=== PATIENT | male | born 1940 | race Caucasian/White ===

== ENCOUNTER 2017-05-23 09:23 | Emergency (ER) | payer MEDICARE, OTHER ==
[~2017-05-23] VITALS: Ht 182.9 cm; Wt 75.0 kg
[2017-05-23] MEDS ORDERED: CLOPIDOGREL75 MG PO (09:34)
[2017-05-23] MEDS ORDERED: LEXAPRO10 MG PO (09:34)
[2017-05-23] MEDS ORDERED: MELOXICAM7.5 MG PO (09:35)
[2017-05-23] MEDS ORDERED: RANITIDINE150 M1 PO (09:35)
[2017-05-23] MEDS ORDERED: FLEXERIL PO (14:44)
[2017-05-23] MEDS ORDERED: LORTAB 1010 MG PO (14:44)
[2017-05-23 14:50] VITALS: BP 130/80
== END 2017-05-23 14:50 | disposition home or self-care (01) ==
LOC: ED 09:23
DX: S39.012A Strain of muscle, fascia and tendon of lower back, initial encounter (principal); M47.817 Spondylosis without myelopathy or radiculopathy, lumbosacral region; M48.56XA Collapsed vertebra, not elsewhere classified, lumbar region, initial encounter for fracture

== ENCOUNTER 2021-03-04 16:42 | Emergency (ER) | payer MEDICARE, OTHER ==
[~2021-03-04] VITALS: Ht 182.9 cm; Wt 72.0 kg
[~2021-03-04 16:42] MED LIST: CLOPIDOGREL75 MG PO; FLEXERIL PO; LEXAPRO10 MG PO; LORTAB 1010 MG PO; MELOXICAM7.5 MG PO; RANITIDINE150 M1 PO
[2021-03-04] MEDS ORDERED: ACID CONTROL MA20 MG PO (17:02)
[2021-03-04] MEDS ORDERED: LORATADINE10 M1 PO (17:02)
[2021-03-04] MEDS ORDERED: ASPIRIN81 MG PO (17:02)
[2021-03-04] MEDS ORDERED: COZAAR50 MG PO (17:03)
[2021-03-04] MEDS ORDERED: CYMBALTA30 MG PO (17:04)
[2021-03-04] MEDS ORDERED: IRON325 M1 PO (17:04)
[2021-03-04 18:04] LABS: HEMATOCRIT 39.8 % (39.0-50.0); HEMOGLOBIN 13.1 g/dl (14.0-18.0); IMMATURE GRANULOCYTES 0.1 % (0.0-5.0); MEAN CELL VOLUME 99.7 fL CALC (80.0-100.0); MEAN CORPUSCULAR HGB 32.8 pG CALC (26.0-32.0); MEAN CORPUSCULAR HGB CONC 32.9 g/dL CAL (32.0-36.0); NEUT# 3.7 thou/uL (1.82-7.42); RED BLOOD COUNT 3.99 mill/uL (4.70-6.10)
[2021-03-04 18:08] LABS: ALBUMIN 3.9 g/dL (3.2-5.0); ALKALINE PHOSPHATASE 96 u/l (38-126); AMYLASE 85 u/l (30-110); ANION GAP 11 (6-22 (CALC)); BILIRUBIN, TOTAL 0.6 mg/dL (0.0-1.4); BUN 18 mg/dL (8-23); BUN/CREATININE RATIO 16 (12-20 (CALC)); CARBON DIOXIDE 28 mmol/l (22-30); CHLORIDE 101 mmol/l (95-108); CREATININE 1.2 mg/dL (0.7-1.3); GFR 59 ML/MIN (>=60 (CALC)); GFR FOR AFR.AMER. > 60 ML/MIN (>=60 (CALC)); LIPASE 120 u/l (23-300); POTASSIUM 3.9 mmol/l (3.5-5.1); SGOT/AST 40 u/l (19-48); SODIUM 136 mmol/l (137-146)
[2021-03-04] MEDS ORDERED: LOMOTIL2.5 MG PO (19:58)
[2021-03-04 20:13] LABS: URINE BILIRUBIN - DIPSTICK NEGATIVE (NEGATIVE); URINE BLOOD DIPSTICK NEGATIVE (NEGATIVE); URINE COLOR YELLOW; URINE GLUCOSE - DIPSTICK NEGATIVE (NEGATIVE); URINE KETONE NEGATIVE (NEGATIVE); URINE LEUK ESTERASE NEGATIVE (NEGATIVE); URINE PROTEIN - DIPSTICK NEGATIVE (NEG-TRACE); URINE UROBILINOGEN - DIPSTICK 0.2 E.U./dL (0.2)
[2021-03-04 20:15] LABS: URINE NITRITE - DIPSTICK NEGATIVE (Negative)
[2021-03-04 20:34] VITALS: BP 153/82
== END 2021-03-04 20:35 | disposition home or self-care (01) ==
LOC: ED 16:42
PROVIDERS: Emergency Medicine
DX: B34.9 Viral infection, unspecified (principal); I10 Essential (primary) hypertension; F41.9 Anxiety disorder, unspecified; Z20.822 Contact with and (suspected) exposure to COVID-19
CPT/HCPCS: Q9967

== ENCOUNTER 2021-11-04 11:40 | Observation (INO) | payer OTHER, MEDICARE ==
[2021-11-04] VITALS (14 sets, daily range): BP systolic 93–144; BP diastolic 52–84
[~2021-11-04] VITALS: Ht 182.9 cm; Wt 69.0 kg
[~2021-11-04 11:40] MED LIST changes: +ACID CONTROL MA20 MG PO; +ASPIRIN81 MG PO; +COZAAR50 MG PO; +CYMBALTA30 MG PO; +IRON325 M1 PO; +LOMOTIL2.5 MG PO; +LORATADINE10 M1 PO
--- NOTE | 2021-11-04 11:58 | NUR ---
PATIENT TO ROOM 10 VIA WHEEL CHIAR.
[2021-11-04] MEDS ORDERED: [UNRECOGNIZED DRUG - OTHER] (12:08)
[2021-11-04] MEDS ORDERED: PLAVIX75 MG PO (12:09)
[2021-11-04] MEDS ORDERED: TYLENOL 8 HOUR650 MG PO (12:09)
[2021-11-04] MEDS ORDERED: VITAMIN D-31000 UNI1 (12:09)
[2021-11-04] MEDS ORDERED: CENTRUM PO (12:10)
[2021-11-04] MEDS ORDERED: VANCOMYCIN HCL125 M1 (12:11)
[2021-11-04] MEDS ORDERED: CENTRUM SILVER PO (12:11)
[2021-11-04] MEDS ORDERED: PRESERVISION AREDS PO (12:12)
[2021-11-04 12:26] LABS: HEMATOCRIT 38.9 % (39.0-50.0); HEMOGLOBIN 12.9 g/dl (14.0-18.0); IMMATURE GRANULOCYTES 0.6 % (0.0-5.0); MEAN CELL VOLUME 100.5 fL CALC (80.0-100.0); MEAN CORPUSCULAR HGB 33.3 pG CALC (26.0-32.0); MEAN CORPUSCULAR HGB CONC 33.2 g/dL CAL (32.0-36.0); NEUT# 13.94 thou/uL (1.82-7.42); RED BLOOD COUNT 3.87 mill/uL (4.70-6.10); RED CELL DISTRI WIDTH 13.6 % (11.5-15.5)
[2021-11-04 12:49] LABS: ALBUMIN 3.8 g/dL (3.2-5.0); ALKALINE PHOSPHATASE 94 u/l (38-126); ANION GAP 10 (6-22 (CALC)); BUN 16 mg/dL (8-23); BUN/CREATININE RATIO 16 (12-20 (CALC)); CARBON DIOXIDE 25 mmol/l (22-30); CHLORIDE 103 mmol/l (95-108); CREATININE 1.1 mg/dL (0.7-1.3); GFR FOR AFR.AMER. > 60 ML/MIN (>=60 (CALC)); GFR OTHER RACES > 60 ML/MIN (>=60 (CALC)); POTASSIUM 3.7 mmol/l (3.5-5.1); SGOT/AST 37 u/l (19-48); SODIUM 134 mmol/l (137-146); TOTAL PROTEIN 6.7 g/dL (6.3-8.2)
[2021-11-04 12:53] LABS: BILIRUBIN, TOTAL 0.9 mg/dL (0.0-1.4)
[2021-11-04 14:54] LABS: URINE BILIRUBIN - DIPSTICK NEGATIVE (NEGATIVE); URINE BLOOD DIPSTICK TRACE-INTACT (NEGATIVE); URINE COLOR YELLOW; URINE GLUCOSE - DIPSTICK NEGATIVE (NEGATIVE); URINE KETONE NEGATIVE (NEGATIVE); URINE LEUK ESTERASE NEGATIVE (NEGATIVE); URINE PROTEIN - DIPSTICK NEGATIVE (NEG-TRACE); URINE SPECIFIC GRAVITY 1.015; URINE UROBILINOGEN - DIPSTICK 0.2 E.U./dL (0.2)
[2021-11-04 14:56] LABS: URINE NITRITE - DIPSTICK NEGATIVE (Negative)
--- NOTE | 2021-11-04 17:00 | NUR ---
PT XFER TO RM [id number]. PT VSS. PT IN NO ACUTE DISTRESS
--- NOTE | 2021-11-04 20:00 | NUR ---
PT ALERT AND ORIENTED. REPORTS BACK PAIN AND REQUESTED TYLENOL ONLY. PT DOES NOT LOOK TO BE IN ANY DISTRESS. VITAL SIGNS ARE WITHIN NORMAL LIMITS. CALL LIGHT AND PERSONAL BELONGINGS WITHIN REACH. PT BEING CLOSELY MONITORED.
--- NOTE | 2021-11-05 04:00 | NUR ---
0000 AND 0400 SHIFT REASSESSMENT - NO CHANGES IN PTS STATUS SINCE INITIAL ASSESSMENT. PT RESTING COMFORTABLY. PT DENIES PAIN. CALL LIGHT AND PERSONAL BELONGINGS ARE WITHIN REACH. PT BEING CLOSELY MONITORED.
[2021-11-05 04:30] VITALS: BP 138/75
[2021-11-05 05:59] LABS: MEAN CELL VOLUME 101.6 fL CALC (80.0-100.0); MEAN CORPUSCULAR HGB 33.9 pG CALC (26.0-32.0); MEAN CORPUSCULAR HGB CONC 33.3 g/dL CAL (32.0-36.0); RED BLOOD COUNT 3.84 mill/uL (4.70-6.10); RED CELL DISTRI WIDTH 13.8 % (11.5-15.5)
[2021-11-05 06:01] LABS: ANION GAP 11 (6-22 (CALC)); BUN 16 mg/dL (8-23); BUN/CREATININE RATIO 17 (12-20 (CALC)); CARBON DIOXIDE 26 mmol/l (22-30); CHLORIDE 105 mmol/l (95-108); CREATININE 0.9 mg/dL (0.7-1.3); GFR FOR AFR.AMER. > 60 ML/MIN (>=60 (CALC)); GFR OTHER RACES > 60 ML/MIN (>=60 (CALC)); MAGNESIUM 1.6 mg/dL (1.6-2.3); POTASSIUM 3.4 mmol/l (3.5-5.1); SODIUM 138 mmol/l (137-146)
[2021-11-05 06:51] VITALS: BP 105/69
--- NOTE | 2021-11-05 08:00 | NUR ---
GOT REPORT FROM DAMAGE ADJUSTER NURSE. PATIENT IS AOX3. PATIENT IS SITTING UP IN CHAIR WITH AT BEDSIDE. PATIENT EATING BREAKFAST. PATIENT STATES THAT HE IS IN HOPE OF GOING HOME. I ADVISED HIM THAT THE PROVIDERS WILL BE ROUNDING SOON. PATIENT VERBALIZED UNDERSTANDING. CALL LIGHT AND BEDSIDE TABLE WITH IN REACH.
[2021-11-05 10:20] VITALS: BP 118/87
--- NOTE | 2021-11-05 12:00 | NUR ---
PATIENT IS SITTING IN CHAIR WITH SPOUSE AT BEDSIDE. PATIENT IS EATING LUNCH AND STATES THAT HE IS BEING DISCHARGED. WOULD LIKE TO BE DISCHARGED SOON POSSIBLE. INFORMED HIM THAT SOON THE MD PUTS IN THE ORDER THAT I WOULD BE ABLE TO GET HIM OUT OF HERE. PATIENT VERBALIZED UNDERSTANDING AND AGREED WITH PLAN.
--- NOTE | 2021-11-05 15:06 | NUR ---
Discharge instructions given. Patient verbalizes understanding of same. Discharged in stable condition via Wheelchair to Home with family. All belongings sent with pt.
== END 2021-11-05 15:07 | disposition home or self-care (01) | DRG 373 ==
LOC: ED 11:40 → ED-I 13:55 → ED 14:30 → MS2 14:31
PROVIDERS: Family Medicine; Hospitalist; ADMIT Internal Medicine; ATTEND Internal Medicine
DX: A04.71 Enterocolitis due to Clostridium difficile, recurrent (principal); E86.0 Dehydration; I10 Essential (primary) hypertension; F41.9 Anxiety disorder, unspecified; Z20.822 Contact with and (suspected) exposure to COVID-19
CPT/HCPCS: J1650